=== PATIENT | male | born 1975 | race Caucasian/White ===

== ENCOUNTER 2023-03-05 01:39 | Emergency (ER) | payer BC, OTHER ==
[2023-03-05 01:49] VITALS: PULSE 82; RESP 17; TEMP 98.1; BMI 28.0
[2023-03-05] MEDS ORDERED: PANTOPRAZOLE 20 MG TABLET PO ONE ×2 (03:17→03:26)
[2023-03-05] MEDS ORDERED: MAG HYDROX/AL HYDROX/SIMETH 30 ML UNIT-DOSE CUP PO ONE (03:17)
[2023-03-05] MEDS ORDERED: FAMOTIDINE 20 MG TABLET PO ONE (03:17)
[2023-03-05] MEDS ORDERED: METOCLOPRAMIDE HCL INJECTION 10 MG/2 ML VIAL IM ONE (03:24)
[2023-03-05] MEDS ORDERED: FAMOTIDINE 20 MG TABLET ONE (03:26)
[2023-03-05] MEDS ORDERED: MAG HYDROX/AL HYDROX/SIMETH 30 ML UNIT-DOSE CUP ONE (03:27)
[2023-03-05] MEDS ORDERED: METOCLOPRAMIDE HCL INJECTION 10 MG/2 ML VIAL ONE (03:27)
[2023-03-05 04:48] VITALS: BP 133/91
== END 2023-03-05 05:09 | disposition home or self-care (01) ==
LOC: JER 01:39
PROC: 3E023GC Introduction of Other Therapeutic Substance into Muscle, Percutaneous Approach (ICD-10-PCS; principal; 2023-03-05)
DX: R06.6 Hiccough (principal); R06.02 Shortness of breath; R45.7 State of emotional shock and stress, unspecified
CPT/HCPCS: 87070; 87651; 93005; 93010; 99284-25